=== PATIENT | female | born 1985 | race Hispanic/Latino ===

== ENCOUNTER 2019-03-24 00:07 | Emergency (ER) | payer BC ==
[2019-03-24 00:43] LABS: Absolute Lymphocytes (CBC) 4.5 K/uL (0.7-4.9); Basophils % 1.2 % (0-1.3); Eosinophils % 5.1 % (0-4.4); Hematocrit 36.1 % (36.0-45.0); Lymphocytes % 51.8 % (15.3-44.8); MPV 11.1 fL (7.6-11.3); Monocytes % 8.6 % (3.3-12.3); RBC Red Blood Cell Count 3.87 M/uL (3.86-4.86)
[2019-03-24] MEDS ORDERED: BUPIVACAINE 0.5% PF 10 ML VIAL ONE (00:46)
[2019-03-24] MEDS ORDERED: CEFAZOLIN/SWI 1gm 1 GM/10 ML SYR ONE (00:47)
[2019-03-24] MEDS ORDERED: TETANUS & DIPHTHERIA TOX,ADULT 0.5 ML VIAL ONE (00:47)
[2019-03-24] MEDS ORDERED: LIDOCAINE 1% MPF 30 ML VIAL ONE (00:47)
[2019-03-24] MEDS ORDERED: NA CHLORIDE 0.9% 1,000 ML ONE (00:54)
--- NOTE | 2019-03-24 01:25 | ER ---
Nurse's Notes [facility] Name: Aniya Smith Age: 33 yrs Sex: Female : 1985 Arrival Date: 03/24/2019 Time: 00:09 Bed 4 Private MD: Diagnosis: Laceration of extensor muscle, fascia and tendon of thumb at wrist and hand level-right Presentation: 03/24 00:32 Presenting complaint: Patient states: [place], sustained tl2 laceration to right wrist, no bleeding. Tendon damage noted. Pt is unable to move right thumb. Transition of care: patient was not received from another setting of care. Complicating Factors: The patient fell landing on an outstretched hand. Onset of symptoms was March 24, 2019 at 00:00. Risk Assessment: Do you want to hurt yourself or someone else? Patient reports no desire to harm self or others. Initial Sepsis Screen: Does the patient meet any 2 criteria? No. Patient's initial sepsis screen is negative. Does the patient have a suspected source of infection? No. Patient's initial sepsis screen is negative. Care prior to arrival: None. 00:32 Method Of Arrival: Ambulatory tl2 00:32 Acuity: ALEK 3 tl2 Triage Assessment: 00:35 General: Appears in no apparent distress. uncomfortable, Behavior is calm, cooperative, tl2 appropriate for age. Pain: Complains of pain in dorsal aspect of proximal phalanx of right thumb. Neuro: Level of Consciousness is awake, alert, obeys commands, Oriented to person, place, time, situation. Neuro: Reports dizziness. Respiratory: Airway is patent Respiratory effort is even, unlabored, Respiratory pattern is regular, symmetrical. GI: No signs and/or symptoms were reported involving the gastrointestinal system. Derm: Skin is pink, warm \T\ dry. Injury Description: Laceration sustained to dorsal aspect of proximal phalanx of right thumb is clean, 0.5 to 2.5 cm long, not bleeding, was sustained 30-60 minutes ago. is bleeding a small amount. 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 - Social history:: Smoking status: Patient uses tobacco products, denies chronic smoking, but will smoke occasionally. - Ebola Screening: : No symptoms or risks identified at this time. Screenin:38 Abuse screen: Denies threats or abuse. Nutritional screening: No deficits noted. tl2 Tuberculosis screening: No symptoms or risk factors identified. Fall Risk None identified. Assessment: 00:39 General: see triage assessment. Musculoskeletal: Circulation, motion, and sensation tl2 intact. Range of motion: limited in dorsal aspect of proximal phalanx of right thumb. Injury Description: Laceration sustained to dorsal aspect of proximal phalanx of right thumb is clean, 0.5 to 2.5 cm long, not bleeding. 01:00 Reassessment: Patient appears in no apparent distress at this time. Patient and/or tl2 family updated on plan of care and expected duration. Pain level reassessed. Patient is alert, oriented x 3, equal unlabored respirations, skin warm/dry/pink. 02:38 Reassessment: Patient appears in no apparent distress at this time. Patient and/or tl2 family updated on plan of care and expected duration. Pain level reassessed. Patient is alert, oriented x 3, equal unlabored respirations, skin warm/dry/pink. pt stable for transfer. Vital Signs: 00:35 BP 102 / 72; Pulse 57; Resp 18; Temp 98.2(O); Pulse Ox 98% on R/A; Weight 68.04 kg; tl2 Height 5 ft. 2 in. (157.48 cm); Pain 5/10; 01:00 BP 108 / 73; Pulse 66; Resp 18; Pulse Ox 99% on R/A; tl2 02:26 BP 109 / 81; Pulse 65; Resp 18; Pulse Ox 98% on R/A; tl2 00:35 Body Mass Index 27.44 (68.04 kg, 157.48 cm) tl2 ED Course: 00:09 Patient arrived in ED. am2 00:17 Denilson Macdonald PA is PHCP. cp 00:17 Jason Daniels MD is Attending Physician. cp 00:35 Triage completed. tl2 00:35 Arm band placed on right wrist. tl2 00:39 Patient has correct armband on for positive identification. Placed in gown. Bed in low tl2 position. Call light in reach. Side rails up X 1. Adult w/ patient. 00:39 Inserted saline lock: 22 gauge in left hand, using aseptic technique. Blood collected. tl2 00:41 Hand Right 3 View XRAY In Process Unspecified. EDMS 01:10 Esme Rodriguez RN is Primary Nurse. tl2 01:10 Dressings: 4X4s X 2; dorsal aspect of proximal phalanx of right thumb Wet to dry tl2 dressing applied to right thumb/wrist. 02:38 No provider procedures requiring assistance completed. Patient transferred, IV remains tl2 in place. 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 Exp: tl1 11/29/2020. Lot #: [id number]. } Route: IM; Site: left deltoid; 02:40 Follow up: Response: No adverse reaction tl2 00:41 Drug: Ancef 1 grams Route: IVPB; Site: left hand; tl2 02:40 Follow up: IV Status: Completed infusion tl2 00:41 Drug: NS 0.9% 1000 ml Route: IV; Rate: 1 bolus; Site: left hand; tl2 02:00 Follow up: IV Status: Completed infusion; IV Intake: 1000ml tl2 Intake: 02:00 IV: 1000ml; Total: 1000ml. tl2 Outcome: 01:24 ER care complete, transfer ordered by MD. baker 02:38 Transferred by ground EMS to [facility], Transfer form completed. tl2 02:38 Condition: stable 02:38 Discharge instructions given to patient, family, Instructed on the need for transfer. 02:40 Patient left the ED. tl2 Signatures: Dispatcher [employer] EDMS Kellee Hill RN RN tl1 Denilson Macdonald PA PA cp Knox, Taylor, RN RN tl2 Nancy Artis am2
--- NOTE | 2019-03-24 01:27 | EDPHYS ---
Physician Documentation [facility] Name: Aniya Smith Age: 33 yrs Sex: Female : 1985 Arrival Date: 03/24/2019 Time: 00:09 Bed 4 Private MD: ED Physician Jason Daniels HPI: 03/24 00:32 This 33 yrs old Female presents to ER via Unassigned with complaints of Laceration. cp 00:32 The patient or guardian reports injury, a laceration, dirty. The complaints affect the cp dorsal side base of right thumb. Context: [place], slipped. Onset: The symptoms/episode began/occurred just prior to arrival. 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 - Social history:: Smoking status: Patient uses tobacco products, denies chronic smoking, but will smoke occasionally. - Ebola Screening: : No symptoms or risks identified at this time. ROS: 00:35 Eyes: Negative for injury, pain, redness, and discharge. cp 00:35 Cardiovascular: Negative for chest pain, palpitations. 00:35 Respiratory: Negative for cough, shortness of breath, wheezing. 00:35 Abdomen/GI: Negative for abdominal pain, nausea, vomiting, and diarrhea. 00:35 Neuro: Negative for numbness, tingling. 00:35 Skin: Positive for laceration(s), of the dorsal aspect proximal to first phalanx of cp right thumb. 00:35 Constitutional: Negative for body aches, chills, fever, poor PO intake. cp 00:35 All other systems are negative. Exam: 00:45 Constitutional: The patient appears in no acute distress, alert, awake, well developed, cp well nourished. 00:45 Head/Face: Normocephalic, atraumatic. cp 00:45 Eyes: Periorbital structures: appear normal, Conjunctiva: normal, no exudate, no injection, Lids and lashes: appear normal, bilaterally. 00:45 ENT: External ear(s): are unremarkable, Nose: is normal, Mouth: is normal, Posterior pharynx: is normal, airway is patent, no erythema, no exudate. 00:45 Chest/axilla: Inspection: normal, Palpation: is normal, no crepitus, no tenderness. 00:45 Cardiovascular: Rate: bradycardic, Rhythm: regular. 00:45 Respiratory: the patient does not display signs of respiratory distress, Respirations: normal, no use of accessory muscles, no retractions, no splinting, no tachypnea, labored breathing, is not present, Breath sounds: are clear throughout, no decreased breath sounds, no stridor, no wheezing. 00:45 Abdomen/GI: Inspection: abdomen appears normal, Palpation: abdomen is soft and non-tender, in all quadrants. 00:45 Musculoskeletal/extremity: Perfusion: the extremity is normally perfused throughout, Sensation intact. Tendon exam: postive for complete laceration Abductor polilicis longus and Extensor pollicis brevis tendons. 00:45 Skin: injury, laceration(s), the wound is approximately 4 cm(s), of the dorsal aspect proximal to first phalanx of right thumb, that can be described as contaminated, jagged, with mild bleeding. Vital Signs: 00:35 BP 102 / 72; Pulse 57; Resp 18; Temp 98.2(O); Pulse Ox 98% on R/A; Weight 68.04 kg; tl2 Height 5 ft. 2 in. (157.48 cm); Pain 5/10; 01:00 BP 108 / 73; Pulse 66; Resp 18; Pulse Ox 99% on R/A; tl2 02:26 BP 109 / 81; Pulse 65; Resp 18; Pulse Ox 98% on R/A; tl2 00:35 Body Mass Index 27.44 (68.04 kg, 157.48 cm) tl2 MDM: 00:21 Patient medically screened. cp 01:20 Data reviewed: vital signs, nurses notes, radiologic studies, plain films. cp 01:20 Differential diagnosis: dislocation, open fracture, closed fracture, tendon laceration. cp Test interpretation: by ED physician or midlevel provider: xrays of right hand negative for fracture. 01:25 Physician consultation: DR Astorga, hospitalist [facility], will accept cp patient as transfer. 01:35 ED course: Wound cleaned and irrigated using 1000 mL NS. Wet to dry dressing placed. IV cp Ancef and IM tetanus given. Will transfer to [facility]. 03/24 00:21 Order name: CBC with Diff cp 03/24 00:21 Order name: BMP; Complete Time: 00:56 cp 03/24 00:44 Order name: Manual Differential EDMS 03/24 01:00 Order name: Test, Serum ag4 03/24 01:01 Order name: PT-INR cp 03/24 01:01 Order name: Ptt, Activated cp 03/24 00:21 Order name: IV; Complete Time: 00:41 cp 03/24 00:25 Order name: Hand Right 3 View XRAY cp 03/24 01:54 Order name: Slides for Pathologist Review EDMS 03/24 00:21 Order name: Urine Dipstick-Ancillary (obtain specimen); Complete Time: 01:17 cp 03/24 00:21 Order name: Urine Test (obtain specimen); Complete Time: 01:17 cp 03/24 00:56 Order name: NPO; Complete Time: 01:07 cp Administered Medications: 00:37 Drug: Tetanus-Diphtheria Toxoid Adult 0.5 ml {Assistant Facility Manager: [employer]. Exp: tl1 11/29/2020. Lot #: [id number]. } Route: IM; Site: left deltoid; 02:40 Follow up: Response: No adverse reaction tl2 00:41 Drug: Ancef 1 grams Route: IVPB; Site: left hand; tl2 02:40 Follow up: IV Status: Completed infusion tl2 00:41 Drug: NS 0.9% 1000 ml Route: IV; Rate: 1 bolus; Site: left hand; tl2 02:00 Follow up: IV Status: Completed infusion; IV Intake: 1000ml tl2 Disposition: 03:16 Co-signature as Attending Physician, Jason Daniels MD. pkl Disposition: 03/24/19 01:24 Transfer ordered to [facility]. Diagnosis is Laceration of extensor muscle, fascia and tendon of thumb at wrist and hand level - right. - Reason for transfer: Higher level of care. - Accepting physician is DR Astorga. - Condition is Stable. - Problem is new. - Symptoms have improved. Signatures: Dispatcher [employer] EDMA Jason Daniels MD MD pkl Lasagna, Tonya RN RN tl1 Denilson Macdonald PA PA cp Esme Rodriguez, RN RN tl2 Corrections: (The following items were deleted from the chart) 00:39 00:22 Hand Left 3 View+RAD.RAD.BRZ ordered. [facility] EDMA 01:20 00:35 Constitutional: Negative for body aches, chills, fever, poor PO intake, cp cp 01:20 00:35 Skin: Positive for laceration(s), of the dorsal aspect proximal phalanx to right cp thumb, cp 01:20 00:35 All other systems are negative, cp cp 02:33 01:02 TEST, SERUM+SC.LAB.BRZ ordered. [facility] EDMS 02:40 01:24 03/24/2019 01:24 Transfer ordered to [facility]. Diagnosis is tl2 Laceration of extensor muscle, fascia and tendon of thumb at wrist and hand level - right. Reason for transfer: Higher level of care. Accepting physician is DR Astorga. Condition is Stable. Problem is new. Symptoms have improved. cp
[2019-03-24 01:51] LABS: Blood Morphology Comment NOT SEEN (NOT SEEN); Platelet Estimate ADEQ
[2019-03-24 01:54] LABS: Protime INR 1.01
--- NOTE | 2019-03-24 08:24 | RAD REPORT ---
EXAM DESCRIPTION: RAD - Hand Right 3 View - 03/24/2019 12:42 am CLINICAL HISTORY: Fall, hand pain, laceration, decreased range of motion right thumb COMPARISON: None. FINDINGS: No fracture is identified. There is no dislocation or periosteal reaction noted. Soft tis gareth wound is present near the trapezial first metacarpal articulation. Several punctate foreign orly s are seen in the soft tissues. IMPRESSION: Soft tissue wound with foreign bodies near the trapezial first metacarpal articulation. No fracture or acute bone finding.
== END 2019-03-24 02:40 | disposition short-term general hospital (02) ==
LOC: ER 00:07
DX: S66.221A Laceration of extensor muscle, fascia and tendon of right thumb at wrist and hand level, initial encounter (principal); W01.0XXA Fall on same level from slipping, tripping and stumbling without subsequent striking against object, initial encounter; Y93.89 Activity, other specified; Y92.832 Beach as the place of occurrence of the external cause; Z23 Encounter for immunization; Z72.0 Tobacco use
CPT/HCPCS: 36415; 80048; 84703; 85025; 85610; 85730; 90471; 90714; 96365; 96366; 99285; J0690; J7030